=== PATIENT | male | born 1970 | race Caucasian/White ===

== ENCOUNTER → 2020-08-03 | Outpatient (CLI) | payer BC | LOC: LAB 10:20 | PROVIDERS: ATTEND Surgery | DX: Z01.812 Encounter for preprocedural laboratory examination (principal); K42.9 Umbilical hernia without obstruction or gangrene; Z20.822 Contact with and (suspected) exposure to COVID-19 | CPT/HCPCS: U0003; U0005 ==

== ENCOUNTER 2020-08-06 07:49 | Day surgery (SDC) | payer BC ==
[~2020-08-06] VITALS: Ht 177.8 cm; Wt 91.0 kg
[~2020-08-06 07:49] MED LIST: ACETAMINOPHEN 500 MG TABLET PO ONE; HYDROmorphone 2 MG/ML VIAL IVP PRN; IV RINGERS,LACTATED 1000ML 1,000 ML IV SCH; MORPHINE SULFATE 2 MG/ML VIAL. IVP PRN; PROCHLORPERAZINE 10 MG/2 ML VIAL. IVP PRN; fentaNYL PF VIAL 100 MCG/2 ML VIAL IVP PRN
[2020-08-06] MEDS ORDERED: LIDOCAINE 2% PF 5 ML VIAL. ONE (07:59)
[2020-08-06] MEDS ORDERED: PROPOFOL 10 MG/ML (20ML) VIAL. IV ONE (07:59)
[2020-08-06] MEDS ORDERED: ONDANSETRON PF 4 MG/2 ML VIAL. ONE (08:00)
[2020-08-06] MEDS ORDERED: DEXAMETHASONE SOD PHOS 4 MG/ML VIAL ONE (08:00)
[2020-08-06] MEDS ORDERED: fentaNYL PF VIAL 100 MCG/2 ML VIAL ONE (08:00)
[2020-08-06] MEDS ORDERED: ACETAMINOPHEN 500 MG TABLET PO SCH (08:15)
[2020-08-06] MEDS ORDERED: BUPIVACAINE-EPI 0.25% 30 ML VIAL KIT. ONE ×2 (08:39→08:41)
[2020-08-06] MEDS ORDERED: OXYC1TAB15 PO (09:11)
[2020-08-06] MEDS ORDERED: oxyCODONE/APAP 5/325 1 TAB TABLET PO ONE ×2 (09:15)
--- NOTE | 2020-08-06 09:23 | PDOC4 ---
Operative Note Operative Note Date: August 062020 at 09 21 Preoperative diagnosis: Umbilical hernia Postoperative diagnosis: Same Procedure: Umbilical hernia repair Surgeon: Jeffery Specimen: Hernia sac with contents Dictation: Patient is a 50-year-old male with a painful bulge at his umbilicus consistent with a hernia. Procedure of hernia repair was explained to the patient detail risk benefits were also discussed including bleeding infection alternatives to this procedure also discussed with the patient who seemed to understand and gave a verbal written consent to have the procedure performed. Celso reed was taken to the operating room placed in the supine position general anesthesia was initiated once patient was sleeping in bed his abdomen was prepped and draped usual sterile fashion using ChloraPrep. Area around the umbilicus was injected with quarter percent Marcaine with epinephrine incision was made just below the umbilicus with a 15 blade scalpel this was carried down through the subcutaneous tissue using electrocautery right hemostasis electrocautery was used to excise the hernia sac and contents with a small amount of omentum. Once this was complete the fascial defect was closed with a [id number] 0 Vicryl suture and deep layer of subcutaneous tissue was closed with a running 3-0 Vicryl skin was reapproximated for subcuticular Monocryl Mastisol Steri-Strips and island dressing were applied. Patient was awakened and extubated in the operating room taken to recovery in stable condition all sponge instrument needle counts listed as correct estimated blood loss 5 mL HEATHER LUZ MD Aug 06, 2020 09:23
--- NOTE | 2020-08-06 09:25 | DISCH ---
DISCHARGE INSTRUCTIONS Condition on Discharge Condition on Discharge: Stable Activity After Discharge Activity Instructions for Disc: Avoid exertion Other activity instructions: No lifting more than 20 pounds for 2 weeks Diet after Discharge Diet after Discharge: Regular Wound Incision Care Other wound/incision instructi: Radha shower in 24-hour Contacting the after DC Call your doctor for: If your condition worsens Follow-Up Follow up with: Dr. Luz in 2 weeks HEATHER LUZ MD Aug 06, 2020 09:25
[2020-08-06 10:16] VITALS: BP 127/69
--- NOTE | 2020-08-10 19:15 | PATHOLOGY ---
[facility] Accession Number: [id number] . 01 Material submitted: . hernia - HERNIA SAC AND CONTENTS . 01 Clinical history: . UMBILICAL HERNIA HERNIORRHAPHY . 02 Diagnosis: Segments of focal mesothelial-lined fibromembranous and fibroadipose tissue, umbilical hernia repair: - Hernia sac showing congestion and focal sub-mesothelial reactive fibrosis. (JPM/db; 08/10/2020) LBQ 08/10/2020 1146 Local . 02 Electronically signed: . Beau Ramírez MD, Pathologist NPI- [id number] . 01 Gross description: . Received in formalin labeled "Tobi Alberto, hernia sac and contents" are irregular, thurman-pink to thurman-yellow portions of membranous fibroadipose tissue measuring 3.1 x 1.9 x 0.7 cm. The specimen is serially sectioned to reveal lobular, thurman-yellow cut surface. Color Maker sections of the specimen are submitted in cassette A1([facility]; 08/07/2020) GZA/GZA 08/10/2020 1143 Local . 02 Pathologist provided ICD-10: K42.9 . 02 CPT . 674550 Specimen Comment: A courtesy copy of this report has been sent to [phone] Specimen Comment: [id number] Specimen Comment: Report sent to / DR VALADEZ Performed at: 01 [facility] [address] [facility] [address], [place] [id number] MD González Whiting MD Phone: [phone] Performed at: 02 [facility] [address] [place], [place] [id number] MD Beau Ramírez MD Phone: [phone]
== END 2020-08-06 10:45 | disposition home or self-care (01) ==
LOC: SURG 07:49 → EDUNIT# 09:30 → SURG 10:45
PROVIDERS: ATTEND Surgery
DX: K42.9 Umbilical hernia without obstruction or gangrene (principal); Z87.891 Personal history of nicotine dependence; Z79.899 Other long term (current) drug therapy; Z98.890 Other specified postprocedural states
CPT/HCPCS: 49585; A4215; A4364; A4930; A6219; A6258; J0690; J1100; J2405; J2704; J3010; A4452